=== PATIENT | female | born 1950 | race Caucasian/White ===

== ENCOUNTER 2017-01-17 14:46 | Inpatient (IN) | payer OTHER ==
[~2017-01-17] VITALS: Ht 171.7 cm; Wt 115.2 kg
[2017-01-17 14:46] VITALS: BP 190/120
[~2017-01-17 14:46] MED LIST: AMARYL4 MG PO; ASPIRIN81 M1 PO; ATARAX25 MG PO; COREG6.25 MG PO; HYDR25T PO; KCL PO; KEFLEX500 MG PO; METFORMIN1000 MG PO; MICARDIS HCT PO; MIDRIN (DURADR1 CAP PO; PERCOCET 325 MG1 TA3 PO; PRECOSE100 MG PO; SEPTRA DS1 TAB PO; VICODIN ES 7501 TAB PO; ZOFRAN4 MG PO
[2017-01-17 17:11] VITALS: BP 175/98
[2017-01-17] MEDS ORDERED: PRECOSE100 MG PO (17:50)
[2017-01-17] MEDS ORDERED: ATIVAN1 MG PO (17:51)
[2017-01-17] MEDS ORDERED: AMARYL4 MG PO (17:52)
[2017-01-17] MEDS ORDERED: POTASSIUM CHLO20 ME3 PO (17:52)
[2017-01-17] MEDS ORDERED: HYDR25T PO (17:53)
[2017-01-17] MEDS ORDERED: COZAAR50 M1 PO (17:53)
[2017-01-17] MEDS ORDERED: METFORMIN1000 MG PO (17:53)
[2017-01-17] MEDS ORDERED: ZOCOR20 MG PO (17:54)
[2017-01-17] MEDS ORDERED: CARVEDILOL6.25 MG PO (17:54)
[2017-01-17 17:58] LABS: BASO % 0.3 % (0.0-1.0); EOS % 0.1 % (1.0-4.0); HEMOGLOBIN 12.6 g/dl (12.0-16.0); LYMPH # 1.8 10*3/uL (1.3-4.4); LYMPH % 23.3 % (27.0-41.0); MEAN CORPUSCULAR HGB 33.2 pg (27.0-31.0); MEAN PLATELET VOLUME 8.7 fl (9.6-12.3); MONO # 0.3 10*3/uL (0.1-1.0); MONO % 4.3 % (3.0-9.0); NEUT # 5.5 10*3/uL (2.3-7.9); NEUT % 71.7 % (47.0-73.0); PLATELET COUNT AUTOMATED 238 10*3/uL (130-400); RED BLOOD COUNT 3.79 10*6/uL (4.10-5.10); RED CELL DISTRI WIDTH 12.2 % (0-14.5); WHITE BLOOD COUNT 7.6 10*3/uL (4.8-10.8)
[2017-01-17 18:10] LABS: POTASSIUM 4.1 mmol/L (3.5-5.1)
[2017-01-17 20:00] VITALS: BP 141/71
[2017-01-18] VITALS: BP 143/78
[2017-01-18 06:21] LABS: BASO % 0.4 % (0.0-1.0); EOS % 0.4 % (1.0-4.0); HEMATOCRIT 33.3 % (37.0-47.0); HEMOGLOBIN 11.4 g/dl (12.0-16.0); LYMPH # 2.7 10*3/uL (1.3-4.4); LYMPH % 35.5 % (27.0-41.0); MEAN CELL VOLUME 96.2 fl (81.0-99.0); MEAN CORPUSCULAR HGB 32.9 pg (27.0-31.0); MEAN CORPUSCULAR HGB CONC 34.2 g/dl (33.0-37.0); MEAN PLATELET VOLUME 9.2 fl (9.6-12.3); MONO # 0.5 10*3/uL (0.1-1.0); MONO % 6.6 % (3.0-9.0); NEUT # 4.3 10*3/uL (2.3-7.9); PLATELET COUNT AUTOMATED 238 10*3/uL (130-400); RED BLOOD COUNT 3.46 10*6/uL (4.10-5.10); RED CELL DISTRI WIDTH 12.2 % (0-14.5); WHITE BLOOD COUNT 7.6 10*3/uL (4.8-10.8)
[2017-01-18 06:41] LABS: ALBUMIN 3.6 gm/dl (3.1-4.5); POTASSIUM 3.2 mmol/L (3.5-5.1)
[2017-01-18 06:55] LABS: BILIRUBIN, TOTAL 0.4 mg/dl (0.2-1.0); THYROID STIM HORMONE (HS) 3.31 uIU/ml (0.358-4.75); TOTAL PROTEIN 6.6 gm/dL (6.4-8.2)
[2017-01-18 07:22] LABS: HEMOGLOBIN A1c 5.2 % (4.8-5.6)
[2017-01-18 08:00] VITALS: BP 110/60
[2017-01-18 08:13] LABS: FOLIC ACID 4.97 ng/mL (>5.38)
[2017-01-18 12:00] VITALS: BP 99/54
[2017-01-18 16:00] VITALS: BP 102/60
[2017-01-18 20:00] VITALS: BP 103/54
[2017-01-19] VITALS: BP 106/53
[2017-01-19 05:56] LABS: BILIRUBIN NEGATIVE (NEGATIVE); BLOOD NEGATIVE (NEGATIVE); CLARITY CLEAR (CLEAR); COLOR YELLOW (YELLOW); GLUCOSE NEGATIVE (NEGATIVE); KETONE NEGATIVE (NEGATIVE); LEUKO ESTERASE NEGATIVE (NEGATIVE); NITRITE NEGATIVE (NEGATIVE); PROTEIN NEGATIVE (NEGATIVE); SPECIFIC GRAVITY 1.015 (1.005-1.030); UROBILINOGEN 0.2 E.U./dl (0.2-1.0)
[2017-01-19 06:24] LABS: BACTERIA TRACE; URINE REFLEX COMMENT YES (NO)
[2017-01-19 07:04] LABS: BASO % 0.6 % (0.0-1.0); EOS # 0.1 10*3/uL (0.0-0.4); EOS % 2.2 % (1.0-4.0); HEMATOCRIT 30.9 % (37.0-47.0); HEMOGLOBIN 10.3 g/dl (12.0-16.0); LYMPH # 2.2 10*3/uL (1.3-4.4); LYMPH % 44.4 % (27.0-41.0); MEAN CELL VOLUME 97.5 fl (81.0-99.0); MEAN CORPUSCULAR HGB 32.5 pg (27.0-31.0); MEAN CORPUSCULAR HGB CONC 33.3 g/dl (33.0-37.0); MEAN PLATELET VOLUME 9.4 fl (9.6-12.3); MONO # 0.4 10*3/uL (0.1-1.0); MONO % 7.8 % (3.0-9.0); NEUT # 2.2 10*3/uL (2.3-7.9); NEUT % 44.8 % (47.0-73.0); PLATELET COUNT AUTOMATED 173 10*3/uL (130-400); RED BLOOD COUNT 3.17 10*6/uL (4.10-5.10); RED CELL DISTRI WIDTH 12.1 % (0-14.5)
[2017-01-19 07:36] LABS: POTASSIUM 3.2 mmol/L (3.5-5.1)
[2017-01-19 08:00] VITALS: BP 124/70
== END 2017-01-19 13:43 | disposition home or self-care (01) | DRG 638 ==
LOC: ED 14:46 → 5E 17:47 → EDHOLD 17:47 → 5E 18:12
PROVIDERS: Emergency Medicine; Internal Medicine; Student in an Organized Health Care Education/Training Program
DX: E11.649 Type 2 diabetes mellitus with hypoglycemia without coma (principal); E87.0 Hyperosmolality and hypernatremia; Z86.73 Personal history of transient ischemic attack (TIA), and cerebral infarction without residual deficits; E78.5 Hyperlipidemia, unspecified; I10 Essential (primary) hypertension; G43.909 Migraine, unspecified, not intractable, without status migrainosus; Z80.1 Family history of malignant neoplasm of trachea, bronchus and lung; Z80.0 Family history of malignant neoplasm of digestive organs; E87.6 Hypokalemia; E53.8 Deficiency of other specified B group vitamins; D64.9 Anemia, unspecified; E66.01 Morbid (severe) obesity due to excess calories; Z68.39 Body mass index [BMI] 39.0-39.9, adult

== ENCOUNTER → 2017-10-19 | Outpatient (CLI) | payer MEDICARE ==
[~2017-10-19] MED LIST changes: +ATIVAN1 MG PO; +CARVEDILOL6.25 MG PO; +COZAAR50 M1 PO; +POTASSIUM CHLO20 ME3 PO; +ZOCOR20 MG PO
[2017-10-19 14:10] LABS: CREATININE 1.16 mg/dL (0.55-1.02); POTASSIUM 3.8 mmol/L (3.5-5.1)
[2017-10-19 14:16] LABS: THYROID STIM HORMONE (HS) 3.97 uIU/ml (0.358-4.75)
[2017-10-20 10:03] LABS: CREATININE,URINE 70.7 mg/dL (Not Estab.); MICRO ALBUMIN/CRE RATIO 6.1 (0.0-30.0)
== END | disposition home or self-care (01) ==
LOC: LAB 13:06
PROVIDERS: Family Medicine
DX: E78.00 Pure hypercholesterolemia, unspecified (principal); E11.9 Type 2 diabetes mellitus without complications

== ENCOUNTER → 2018-05-11 | Outpatient (CLI) | payer MEDICARE ==
[2018-05-11 17:58] LABS: CREATININE 1.26 mg/dL (0.55-1.02); POTASSIUM 4.1 mmol/L (3.5-5.1)
== END | disposition home or self-care (01) ==
LOC: LAB 17:12
PROVIDERS: Family Medicine
DX: E11.9 Type 2 diabetes mellitus without complications (principal); E78.00 Pure hypercholesterolemia, unspecified

== ENCOUNTER → 2019-03-08 | Outpatient (CLI) | payer MEDICARE | END | disposition home or self-care (01) | LOC: US 13:30 | DX: E04.9 Nontoxic goiter, unspecified (principal) ==

== ENCOUNTER → 2019-06-03 | Outpatient (CLI) | payer MEDICARE ==
[2019-06-03 08:50] LABS: BASO % 0.6 % (0.0-1.0); EOS # 0.1 10*3/uL (0.0-0.4); EOS % 1.6 % (1.0-4.0); HEMATOCRIT 34.7 % (37.0-47.0); HEMOGLOBIN 11.9 g/dl (12.0-16.0); LYMPH # 1.5 10*3/uL (1.3-4.4); LYMPH % 30.8 % (27.0-41.0); MEAN CELL VOLUME 97.7 fl (81.0-99.0); MEAN CORPUSCULAR HGB 33.5 pg (27.0-31.0); MEAN CORPUSCULAR HGB CONC 34.3 g/dl (33.0-37.0); MEAN PLATELET VOLUME 9.1 fl (9.6-12.3); MONO # 0.4 10*3/uL (0.1-1.0); MONO % 7.9 % (3.0-9.0); NEUT # 2.9 10*3/uL (2.3-7.9); NEUT % 58.7 % (47.0-73.0); PLATELET COUNT AUTOMATED 204 10*3/uL (130-400); RED BLOOD COUNT 3.55 10*6/uL (4.10-5.10); RED CELL DISTRI WIDTH 11.6 % (0-14.5); WHITE BLOOD COUNT 4.9 10*3/uL (4.8-10.8)
[2019-06-03 09:21] LABS: ALBUMIN 3.8 gm/dl (3.1-4.5); CREATININE 1.52 mg/dL (0.55-1.02); POTASSIUM 3.7 mmol/L (3.5-5.1)
== END | disposition home or self-care (01) ==
LOC: LAB 07:54
PROVIDERS: Nurse Practitioner Family
DX: I10 Essential (primary) hypertension (principal); E04.9 Nontoxic goiter, unspecified; E78.5 Hyperlipidemia, unspecified; E11.649 Type 2 diabetes mellitus with hypoglycemia without coma; F41.9 Anxiety disorder, unspecified; G25.0 Essential tremor

== ENCOUNTER → 2024-10-10 | Outpatient (CLI) | payer MEDICARE ==
[2024-10-10 15:07] LABS: BASO % 0.5 % (0.0-1.0); EOS # 0.1 10*3/uL (0.0-0.4); EOS % 2.9 % (1.0-4.0); HEMATOCRIT 36.4 % (37.0-47.0); MEAN CELL VOLUME 100.6 fl (81.0-99.0); MEAN CORPUSCULAR HGB 32.3 pg (27.0-31.0); MEAN CORPUSCULAR HGB CONC 32.1 g/dl (33.0-37.0); MEAN PLATELET VOLUME 8.5 fl (9.6-12.3); MONO # 0.4 10*3/uL (0.1-1.0); MONO % 10.2 % (3.0-9.0); NEUT # 2.5 10*3/uL (2.3-7.9); NEUT % 65.8 % (47.0-73.0); PLATELET COUNT AUTOMATED 192 10*3/uL (130-400); RED BLOOD COUNT 3.62 10*6/uL (4.10-5.10); RED CELL DISTRI WIDTH 12.6 % (0-14.5); WHITE BLOOD COUNT 3.8 10*3/uL (4.8-10.8)
[2024-10-10 15:28] LABS: ALKALINE PHOSPHATASE 79 U/L (46-116); BUN 25 mg/dl (9-23); CHLORIDE 101 mmol/L (98-107); POTASSIUM 4.2 mmol/L (3.4-5.1); SGPT/ALT 14 U/L (5-49); TOTAL PROTEIN 6.9 gm/dL (6.0-8.0)
== END | disposition home or self-care (01) ==
LOC: LAB 14:42
PROVIDERS: Student in an Organized Health Care Education/Training Program; ATTEND Family Medicine
DX: L97.509 Non-pressure chronic ulcer of other part of unspecified foot with unspecified severity (principal); E11.40 Type 2 diabetes mellitus with diabetic neuropathy, unspecified; R60.0 Localized edema